=== PATIENT | female | born 1965 | race Caucasian/White ===

== ENCOUNTER → 2021-01-01 14:22 | Outpatient (CLI) | payer OTHER, SELFPAY ==
[2021-01-01] MEDS: COVID-19 VACC #1, MRNA(MOD) 100 MCG/0.5 ML VIAL IM (14:24)
== END ==
PROVIDERS: Family Provider Family Medicine; PCP Family Medicine; Visit Provider Internal Medicine
DX: Z23 Encounter for immunization (principal)
CPT/HCPCS: 0011A; 91301

== ENCOUNTER → 2021-01-29 14:23 | Outpatient (CLI) | payer OTHER, SELFPAY ==
[2021-01-29] MEDS: COVID-19 VACC #2, MRNA(MOD) 100 MCG/0.5 ML VIAL IM (14:29)
== END ==
PROVIDERS: Family Provider Family Medicine; PCP Family Medicine; Visit Provider Internal Medicine
DX: Z23 Encounter for immunization (principal)
CPT/HCPCS: 0012A; 91301

== ENCOUNTER → 2021-06-04 07:33 | Outpatient (CLI) | payer OTHER, SELFPAY ==
[2021-06-04 08:47] LABS: Alanine Aminotransferase 13 IU/L (<35); Albumin Globulin Ratio 1.5 (1.0-2.8); Alkaline Phosphatase 81 U/L (38-126); Aspartate Aminotransferase 25 IU/L (14-36); BUN Creatinine Ratio 21.1 (6-22); Bilirubin Total 0.4 mg/dL (0.2-1.3); Blood Urea Nitrogen 15 mg/dL (7-17); Calcium 9.6 mg/dL (8.4-10.2); Carbon Dioxide 29 mmol/L (22-32); Chloride 107 mmol/L (98-107); Cholesterol 197 mg/dL (140-199); Estimated Glomerular Filt Rate > 60.0 mL/min (>60); Globulin 2.7 g/dL (1.7-4.1); Glucose 84 mg/dL (70-100); HDL Cholesterol 59 mg/dL (40-60); HEMOLYSIS < 15 (0-50); LDL Cholesterol Calculated 104 mg/dL (<100); Sodium 142 mmol/L (137-145); Total Protein 6.7 g/dL (6.3-8.2); Triglycerides 169 mg/dL (35-150)
[2021-06-05 14:01] LABS: Fecal Immunochemical Test Negative (Negative)
== END ==
PROVIDERS: Family Provider Family Medicine; PCP Family Medicine; Referring Provider Family Medicine; Visit Provider Family Medicine
DX: Z00.00 Encounter for general adult medical examination without abnormal findings (principal); M06.9 Rheumatoid arthritis, unspecified; Z12.11 Encounter for screening for malignant neoplasm of colon; Z13.1 Encounter for screening for diabetes mellitus; Z13.220 Encounter for screening for lipoid disorders; Z13.228 Encounter for screening for other metabolic disorders; Z83.3 Family history of diabetes mellitus
CPT/HCPCS: 36415; 80053; 80061; 82274; 83036

== ENCOUNTER → 2022-11-26 10:16 | Outpatient (CLI) | payer OTHER, SELFPAY ==
[2022-11-26 11:39] LABS: Glucose 87 mg/dL (70-100)
[2022-11-28 04:45] LABS: Cholesterol HDL Ratio 3.5 ratio (0.0-4.4); Cholesterol,Total 177 mg/dL (100-199); HDL Cholesterol 50 mg/dL (>39); LDL Cholesterol Cal 108 mg/dL (0-99); Triglycerides 105 mg/dL (0-149); VLDL Cholesterol Cal 19 mg/dL (5-40)
== END ==
PROVIDERS: Family Provider Family Medicine; PCP Family Medicine; Referring Provider Family Medicine; Visit Provider Family Medicine
DX: Z00.01 Encounter for general adult medical examination with abnormal findings (principal); E78.5 Hyperlipidemia, unspecified; M06.9 Rheumatoid arthritis, unspecified
CPT/HCPCS: 36415; 80061; 82947; 84443

== ENCOUNTER → 2022-12-02 16:07 | Outpatient (CLI) | payer OTHER, SELFPAY ==
[2022-12-02 17:29] LABS: Alanine Aminotransferase 17 IU/L (<35); Albumin 3.9 g/dL (3.5-5.0); Albumin Globulin Ratio 1.3 (1.0-2.8); Alkaline Phosphatase 104 U/L (38-126); Aspartate Aminotransferase 23 IU/L (14-36); BUN Creatinine Ratio 16.7 (6-22); Bilirubin Total 0.3 mg/dL (0.2-1.3); Blood Urea Nitrogen 12 mg/dL (7-17); C-Reactive Protein Quant < 0.5 mg/dL (<1.0); Calcium 8.9 mg/dL (8.4-10.2); Carbon Dioxide 28 mmol/L (22-32); Chloride 102 mmol/L (98-107); Estimated Glomerular Filt Rate > 60 mL/min (>60); Globulin 2.9 g/dL (1.7-4.1); Glucose 80 mg/dL (70-100); HEMOLYSIS < 15 (0-50); Potassium 3.4 mmol/L (3.4-5.1); Sodium 137 mmol/L (137-145); Total Protein 6.8 g/dL (6.3-8.2)
[2022-12-02 17:36] LABS: Rheumatoid Factor < 8.6 IU/mL (<12.0)
[2022-12-02 17:43] LABS: Erythrocyte Sedimentation Rate 22 MM/HR (0-20)
[2022-12-07 17:08] LABS: ANA Screen, IFA Positive (.)
== END ==
PROVIDERS: Family Provider Family Medicine; PCP Family Medicine; Referring Provider Family Medicine; Visit Provider Family Medicine
DX: G47.19 Other hypersomnia (principal); M06.9 Rheumatoid arthritis, unspecified; F19.11 Other psychoactive substance abuse, in remission
CPT/HCPCS: 36415; 80053; 85651; 86038; 86140; 86430

== ENCOUNTER → 2024-04-13 15:50 | Outpatient (CLI) | payer OTHER, SELFPAY ==
--- NOTE | 2024-04-13 15:51 | DI.MG.S_ITS ---
BILATERAL DIGITAL SCREENING MAMMOGRAM 3D/2D WITH CAD: 04/13/2024 CLINICAL: Routine screening. Baseline exam. No prior exams were available for comparison. Both breasts are heterogeneously dense, which may obscure small masses (category c / 51-75% glandular tissue). Current study was also evaluated with a Computer Aided Detection (CAD) system. There is a possible oval asymmetry in the left breast middle depth central to the nipple seen on the mediolateral oblique view only. No other significant masses, calcifications, or other findings are seen in either breast. IMPRESSION: INCOMPLETE: NEEDS ADDITIONAL IMAGING EVALUATION The possible oval asymmetry in the left breast is indeterminate. Additional views with possible ultrasound are recommended. Based on the Tyrer Cuzick model (a risk assessment model) the patient's lifetime risk is 11.0% and her 10 year risk is 3.9%. According to the ACR, ACS, and NCCN guidelines, an annual breast MRI exam along with mammogram is recommended if the patient's lifetime risk is 20% or greater. This exam was interpreted at Station ID: [id number]. NOTE: For mammograms, a report in lay terms will be sent to the patient. Approximately 15% of breast malignancies will not be visualized mammographically. In the management of a palpable breast mass, a negative mammogram must not discourage biopsy of a clinically suspicious lesion. Electronically Signed By: Sanchez Bar M.D. aty/:04/13/2024 16:40:50 letter sent: Additional Imaging Needed ACR BI-RADS Category 0: Incomplete [id number]
== END ==
PROVIDERS: Family Provider Family Medicine; PCP Family Medicine; Referring Provider Family Medicine; Visit Provider Family Medicine
DX: Z12.31 Encounter for screening mammogram for malignant neoplasm of breast (principal); R92.333 Mammographic heterogeneous density, bilateral breasts
CPT/HCPCS: 77063; 77067

== ENCOUNTER → 2024-05-01 13:41 | Outpatient (CLI) | payer OTHER, SELFPAY ==
--- NOTE | 2024-05-01 | DI.MG.S_ITS ---
UNILATERAL LEFT DIGITAL DIAGNOSTIC MAMMOGRAM 3D/2D WITH ADDITIONAL VIEWS: 05/01/2024 CLINICAL: Additional evaluation requested from prior study. Comparison is made to exam dated: 04/13/2024 mammogram - [facility]. The left breast is heterogeneously dense, which may obscure small masses (category c / 51-75% glandular tissue). There is an asymmetry in the left breast middle depth central to the nipple seen on the mediolateral oblique view only. This is not seen in additional views. No other significant masses or calcifications are seen in the breast. IMPRESSION: INCOMPLETE: NEEDS ADDITIONAL IMAGING EVALUATION The asymmetry in the left breast is indeterminate. An ultrasound is recommended. Based on the Tyrer Cuzick model (a risk assessment model) the patient's lifetime risk is 11.0% and her 10 year risk is 3.9%. According to the ACR, ACS, and NCCN guidelines, an annual breast MRI exam along with mammogram is recommended if the patient's lifetime risk is 20% or greater. This exam was interpreted at Station ID: [id number]. NOTE: For mammograms, a report in lay terms will be sent to the patient. Approximately 15% of breast malignancies will not be visualized mammographically. In the management of a palpable breast mass, a negative mammogram must not discourage biopsy of a clinically suspicious lesion. Electronically Signed By: Malcolm Mukherjee M.D. lc/:05/01/2024 15:26:15 ACR BI-RADS Category 0: Incomplete [id number]
--- NOTE | 2024-05-01 13:42 | DI.US.S_ITS ---
LIMITED ULTRASOUND OF LEFT BREAST: 05/01/2024 CLINICAL: Follow up from addtional views. Comparison is made to exams dated: 05/01/2024 mammogram and 04/13/2024 mammogram - [facility]. Color flow and real-time ultrasound of the left breast 11-1 o'clock, and retroareolar regions were performed. Possible complicated cysts measuring 2-4mm seen at 11:00, incidental. IMPRESSION: PROBABLY BENIGN No sonographic abnormality corresponding to the mammogram finding, which was likely superimposition artifact. Possible complicated cysts measuring 2-4mm seen at 11:00, incidental. These are probably benign. A follow-up ultrasound in 6 months is recommended to demonstrate stability. This exam was interpreted at Station ID: [id number]. Electronically Signed By: Malcolm Mukherjee M.D. lc/:05/01/2024 15:30:52 letter sent: Followup Recommended Ultrasound BI-RADS: 3 Probably benign
== END ==
PROVIDERS: Family Provider Family Medicine; PCP Family Medicine; Referring Provider Family Medicine; Visit Provider Family Medicine
DX: R92.8 Other abnormal and inconclusive findings on diagnostic imaging of breast (principal); R92.332 Mammographic heterogeneous density, left breast
CPT/HCPCS: 76642; 77065; G0279

== ENCOUNTER 2024-05-08 10:35 | Day surgery (SDC) | payer OTHER, SELFPAY ==
--- NOTE | 2024-05-08 | PATH_ITS ---
[facility] Accession Number: [id number] No. of containers..01 Tissue . 01 Material submitted: . colon - DESCENDING POLYP . 01 Diagnosis: DESCENDING POLYP: Tubular adenoma. STO 05/10/2024 1126 Local . 01 Electronically signed: . Gregg Verde MD, Pathologist NPI- [id number] . 01 Gross description: . DESCENDING POLYP: Received in formalin are 3 fragment(s) of bradford, soft tissue measuring 0.1 x 0.1 x 0.1 cm to 0.4 x 0.4 x 0.3 cm submitted entirely in 1 cassette(s) /BERKLEY 05/10/2024 1126 Local . 01 Pathologist provided ICD-10: D12.4 . 01 CPT . 742594 Specimen Comment: A courtesy copy of this report has been sent to [phone] Performed at: [address] [facility] [id number] MD Gregg Verde MD Phone: [phone]
[2024-05-08 10:54] VITALS: BP 131/82; PULSE 65; RESP 16; TEMP 36.3; O2SAT 100
[2024-05-08] MEDS: LACTATED RINGERS 1,000 ML 42 ML IV (11:03)
--- NOTE | 2024-05-08 11:42 | PM.HP.1 ---
History of Present Illness History of Present Illness Date Patient Seen: 05/08/24 Time Patient Seen: 11:42 [place] [facility] [place]: 58-year-old here 1st time screening colonoscopy. No family history of colon cancer. No abdominal concerns today. [facility] Medical History (Updated 12/22/23 @ 09:46 by Leoncio Ruff MD) Family history of heart disease Encounter for general adult medical examination with abnormal findings Snoring Excessive daytime sleepiness Eustachian tube dysfunction Allergies (~1999) Foot pain (~2018) Chronic back pain (~2019) Carpal tunnel syndrome De Quervain's tenosynovitis, right Hx of substance abuse (~1984) Hand pain Seasonal allergies Surgical History (Updated 12/02/20 @ 20:40 by Shona Powell) Anesthesia History of section Necrotizing fasciitis (~2000) Family History (Updated 12/02/20 @ 20:42 by Shona Powell) Father Heart disease Mother Diabetes mellitus Heart disease Brother Heart disease Social History Smoking Status: Current every day smoker alcohol intake: never Meds Home Medications and Allergies Home Medications Medication Instructions Recorded Confirmed Type omeprazole magnesium 20 mg 20 mg PO DAILY 11/26/20 05/08/24 History tablet,delayed release (Prilosec OTC) buprenorphine 2 mg-naloxone 0.5 mg 1 film buccal DAILY 12/02/22 05/08/24 History sublingual film (Suboxone) ibuprofen 600 mg tablet 1,600 mg PO BID 12/02/22 12/22/23 History amitriptyline 25 mg tablet 25 mg PO ONCE PM PRN for insomnia 09/12/23 05/08/24 Rx #60 tabs hydroxyzine HCl 25 mg tablet 25 mg PO BID PRN for insomnia #180 04/25/24 05/08/24 Rx tabs Allergies Allergy/AdvReac Type Severity Reaction Status Date / Time From COMPAZINE Allergy Mild Uncoded 05/08/24 10:50 Exam Vital Signs (past 8 hours): - 05/08/24 10:54 Temperature 97.3 F L Pulse Rate 65 Respiratory Rate 16 Blood Pressure 131/82 Pulse Oximetry 100 Oxygen Delivery Method Room Air Oxygen Flow Rate 0 Oxygen Delivery Method Room Air Oxygen Flow Rate 0 Narrative Exam Narrative: General adult woman alert oriented no acute distress Chest nonlabored respiration Extremities warm well perfused Assessment & Plan Assessment & Plan narrative: The patient requires colorectal screening and colonoscopy is recommended. Technical details were discussed. Risks, benefits, alternatives explained. Risks including but not limited to myocardial infarction, aspiration, bleeding, pain, missed lesion, incomplete examination, need for further radiographic studies, intestinal injury, and need for major abdominal surgery were discussed. All questions were answered to their satisfaction, and they are in agreement with this plan. Time-Based Coding :: [TOTAL MINUTES] spent with patient and on the chart (including review of chart, obtaining history, exam, reviewing outside data, placing orders, documenting exam and treatment plan, and counseling patient) on [DATE].
--- NOTE | 2024-05-08 12:06 | P.OP.COLON_ITS ---
Operative Date/Time/Diagnoses Date of procedure: 05/08/24 Time of procedure: 12:07 Pre-op diagnosis: Colorectal screening Post-op diagnosis: other (Colonic polyp x1) Procedure & Clinicians Study performed: Screening colonoscopy polypectomy Same procedure as scheduled: Yes Indications: Colorectal screening Surgeon: Dashawn Yañez Procedure Notes Procedure in detail: The history and physical was performed/updated and the patient is ASA class is 2. The procedure was discussed in detail with the patient. Potential risks complications including infection, bleeding, missed diagnosis, perforation, need for surgery, and were explained. Their questions were answered and informed consent was obtained. Patient was brought to the procedure room and placed standard monitoring equipment. The patient's vital signs were monitored continuously throughout the entire procedure. Prior to starting time-out was performed. The patient was placed in the left lateral recumbent position. Procedural sedation was administered by anesthesia. Examination began with a thorough inspection of the perianal area there was no evidence of fissures, fistulae, external hemorrhoids or cutaneous malignancy. The colonoscopy scope was then placed into the anal canal and was advanced to the cecum, which was identified by the ileocecal valve, the appendiceal orifice and the confluence of the taenia. The scope was then slowly withdrawn examining colon thoroughly in all directions, irrigating it of any residual stool. The scope was retroflexed within the rectum The patient tolerated the procedure well. They will be discharged once criteria are met. The prep was of fair quality. The withdrawl time was 7 minutes. FINDINGS * Descending colon 3 mm polyp removed biopsy forceps Specimen(s): other (Descending colon polyp) Impression: Colonic polyp x1 Post-procedure Plan for aftercare: Follow up it is dependent on pathology findings likely 5 years Disposition: same day surgery
[2024-05-08 12:09] VITALS: BP 123/79; PULSE 63; RESP 18; TEMP 36.2; O2SAT 99
[2024-05-08 12:13] VITALS: BP 115/77; PULSE 64; RESP 23; O2SAT 99
[2024-05-08 12:17] VITALS: BP 140/67; PULSE 69; RESP 11; O2SAT 99
[2024-05-08 12:20] VITALS: BP 144/84; PULSE 59; RESP 12; O2SAT 100
== END 2024-05-08 12:28 | disposition home or self-care (01) ==
PROVIDERS: Family Provider Family Medicine; PCP Family Medicine; Referring Provider Surgery; Visit Provider Surgery
PROC: 0DJD8ZZ Inspection of Lower Intestinal Tract, Via Natural or Artificial Opening Endoscopic (ICD-10-PCS; CPT 45378; principal; 2024-05-08 11:45)
DX: Z12.11 Encounter for screening for malignant neoplasm of colon (principal); D12.4 Benign neoplasm of descending colon
CPT/HCPCS: 45380; J2704

== ENCOUNTER → 2024-11-02 16:06 | Outpatient (CLI) | payer OTHER, SELFPAY | PROVIDERS: Family Provider Family Medicine; PCP Family Medicine; Referring Provider Nurse Practitioner Family; Visit Provider Nurse Practitioner Family | DX: R30.0 Dysuria (principal) | CPT/HCPCS: 87077; 87086; 87186 ==

== ENCOUNTER → 2025-02-13 15:12 | Outpatient (CLI) | payer OTHER, SELFPAY ==
--- NOTE | 2025-02-13 15:13 | DI.CT.S_ITS ---
PROCEDURE: CT LUNG LOW DOSE SCREENING INDICATIONS: lung cancer screening TECHNIQUE: Noncontrast 2.0-2.5 mm thick sections acquired from the pulmonary apices to the posterior costophrenic angles. 7 mm thick axial MIP, and 5 mm coronal and sagittal reformats were then acquired. For radiation dose reduction, the following was used: automated exposure control, adjustment of mA and/or kV according to patient size. COMPARISON: [facility], , CHEST 1 VIEW, 01/24/2015, 11:55. FINDINGS: Image quality: Diagnostic. Lower Neck: No enlarged lymph nodes. Thyroid: No thyroid nodules which require sonographic follow up, per consensus guidelines. Axillae: No enlarged lymph nodes. Chest Wall: Unremarkable. Bones: Unremarkable. Lungs and Pleura: No pneumothorax or pleural effusions. No consolidation or suspicious nodules. There is a slight degree of lung scarring in the lingular segment left upper lobe. Heart: Heart size is normal. No pericardial effusion. Thoracic Vessels: The aorta and pulmonary arteries demonstrate normal size. Mediastinum and Hortencia: No enlarged lymph nodes. Esophagus: No wall thickening. No hiatal hernia. Upper Abdomen: Visualized upper abdomen solid organs and bowel loops appear normal. IMPRESSION: No suspicious pulmonary nodules. LUNG-RADS 1; continued annual screening, if eligible. Clinically Significant Non-pulmonary Findings: Minimal lung scarring lingular segment left upper lobe. Dictated by: Hai Rodriguez M.D. on 02/14/2025 at 11:35 Approved by: Hai Rodriguez M.D. on 02/14/2025 at 11:37
== END ==
PROVIDERS: PCP Family Medicine; Referring Provider Family Medicine; Visit Provider Family Medicine
DX: Z00.01 Encounter for general adult medical examination with abnormal findings (principal); Z12.2 Encounter for screening for malignant neoplasm of respiratory organs; Z87.891 Personal history of nicotine dependence; N39.0 Urinary tract infection, site not specified; M06.9 Rheumatoid arthritis, unspecified; Z82.49 Family history of ischemic heart disease and other diseases of the circulatory system
CPT/HCPCS: 36415; 71271; 80053; 80061; 82043; 82172; 82570; 84443; 85025

== ENCOUNTER → 2025-02-13 15:47 | Outpatient (CLI) | payer OTHER, SELFPAY ==
[2025-02-13 16:48] LABS: Add Manual Diff / Slide Review NO; Basophils Absolute Auto 0 /uL (0-100); Basophils Percent Auto 0.5 % (0-2); Eosinophils Absolute Auto 100 /uL (0-450); Eosinophils Percent Auto 1.4 % (2-4); Hematocrit 32.7 % (36-46); Hemoglobin 11.3 g/dL (12.0-16.0); Lymphocytes Absolute Auto 1400 /uL (1100-4500); Lymphocytes Percent Auto 16.1 % (25-40); Mean Corpuscular HGB Conc 34.5 % (30-36); Mean Corpuscular Hemoglobin 26.2 PG (26-34); Mean Corpuscular Volume 75.9 fL (80-100); Monocytes Absolute Auto 300 /uL (0-900); Monocytes Percent Auto 3.1 % (3-14); Neutrophils Absolute Auto 7000 /uL (1500-7000); Neutrophils Percent Auto 78.9 % (50-75); Platelet Count 369 X10^3/uL (150-400); Red Blood Cell Count 4.31 X10^6/uL (4.0-5.2); White Blood Cell Count 8.9 X10^3/uL (4.5-11.0)
[2025-02-13 17:12] LABS: Alanine Aminotransferase 18 IU/L (<35); Albumin 3.9 g/dL (3.5-5.0); Albumin Globulin Ratio 1.4 (1.0-2.8); Alkaline Phosphatase 96 U/L (38-126); Aspartate Aminotransferase 26 IU/L (14-36); BUN Creatinine Ratio 18.4 (6-22); Bilirubin Total 0.3 mg/dL (0.2-1.3); Blood Urea Nitrogen 16 mg/dL (7-17); Calcium 9.2 mg/dL (8.4-10.2); Carbon Dioxide 24 mmol/L (22-32); Chloride 106 mmol/L (98-107); Cholesterol 182 mg/dL (140-199); Estimated Glomerular Filt Rate > 60 mL/min (>60); Globulin 2.8 g/dL (1.7-4.1); Glucose 111 mg/dL (70-99); HDL Cholesterol 40 mg/dL (40-60); HEMOLYSIS < 15 (0-50); LDL Cholesterol Calculated 103 mg/dL (<100); Potassium 3.4 mmol/L (3.4-5.1); Sodium 138 mmol/L (137-145); Total Protein 6.7 g/dL (6.3-8.2); Triglycerides 195 mg/dL (35-150)
[2025-02-13 17:44] LABS: TSH w/ Reflex to FT4 1.72 uIU/mL (0.47-4.68)
[2025-02-13 18:33] LABS: Creatinine Urine Random 64.27 mg/dL
[2025-02-13 18:39] LABS: Microalbumin Urine Random 0.8 mg/dL (0-1.6)
[2025-02-15 04:08] LABS: Apolipoprotein B 93 mg/dL (<90)
== END ==
PROVIDERS: PCP Family Medicine; Referring Provider Family Medicine; Visit Provider Family Medicine
DX: Z00.01 Encounter for general adult medical examination with abnormal findings (principal); N39.0 Urinary tract infection, site not specified; M06.9 Rheumatoid arthritis, unspecified; Z82.49 Family history of ischemic heart disease and other diseases of the circulatory system
CPT/HCPCS: 36415; 80053; 80061; 82043; 82172; 82570; 84443; 85025